=== PATIENT | female | born 1945 | race Caucasian/White ===

== ENCOUNTER 2018-09-11 13:58 | Emergency (ER) | payer OTHER ==
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
[2018-09-11 16:30] LABS: PLATELET COUNT 287 10^3/uL (150-400)
[2018-09-11] MEDS ORDERED: GADOBUTROL 10 ML VIAL IVP ONE (16:55)
[2018-09-11] MEDS ORDERED: NS 1,000 ML IV ONE (18:02)
[2018-09-12 04:48] VITALS: BP 145/71
== END 2018-09-11 19:39 | disposition home or self-care (01) ==
LOC: EDUNIT#
DX: S00.93XA Contusion of unspecified part of head, initial encounter (principal); M25.511 Pain in right shoulder; R07.9 Chest pain, unspecified; V49.60XA Unspecified car occupant injured in collision with unspecified motor vehicles in traffic accident, initial encounter; Y92.410 Unspecified street and highway as the place of occurrence of the external cause; Y93.9 Activity, unspecified; Y99.9 Unspecified external cause status
CPT/HCPCS: 82435-PO; 82565-PO; 82947-PO; 84132-PO; 84295-PO; 84484-ER; 84520-PO; 85014-ER; 96374; A9585; J1200